=== PATIENT | male | born 1940 | race Caucasian/White ===

== ENCOUNTER 2020-10-06 00:28 | Emergency (ER) | payer MEDICARE, BC ==
[~2020-10-06] VITALS: Ht 182.9 cm; Wt 86.4 kg
[2020-10-06] MEDS ORDERED: levetiracetam inj 1,000 MG in normal saline 100ml IV soln 90 ML IV ONE (01:10)
[2020-10-06] MEDS ORDERED: levetiracetam-NS 1000mg/100ml 100 ML IV ONE (01:15)
[2020-10-06 02:15] VITALS: BP 147/69
== END 2020-10-06 02:21 | disposition home or self-care (01) ==
LOC: ER 00:29
DX: R56.9 Unspecified convulsions (principal); E78.00 Pure hypercholesterolemia, unspecified; I10 Essential (primary) hypertension; Z86.69 Personal history of other diseases of the nervous system and sense organs; Z85.038 Personal history of other malignant neoplasm of large intestine; Z98.890 Other specified postprocedural states
CPT/HCPCS: 96374; 99284; J1953